=== PATIENT | female | born 1960 | race Caucasian/White ===

== ENCOUNTER 2024-07-15 11:36 | Outpatient (AMB) | payer OTHER, SELFPAY ==
--- NOTE | 2024-07-15 12:10 | A.OFFPC_ITS ---
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 ?? Prior PCP:? No recent PCP Previously Dr Heredia Last office visit/CPE:? > 1 yr Acute issue(s): Some bloating? ?? PMHx:? None SurgHx:? Breast Implants, foot surgery, Umbilical surgery FHx:?Mom: Stomach CA. Sister: Colon CA. Dad: Dementia in advanced age. SocHx:? 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 No Drugs PFSH Family History (Updated 07/15/24 @ 12:20 by Danika Vargas CMA) Mother High blood pressure Thyroid disorder Stomach cancer Sister Thyroid disorder Colon cancer Other FH: mental illness Social History (Updated 07/15/24 @ 12:22 by Danika Vargas CMA) Use of substances other than those prescribed or required for medical reasons: No Questionnaire PHQ-9 Over the last 2 weeks, how often have you been bothered by any of the following problems? 1. Little interest or pleasure in doing things: not at all 2. Feeling down, depressed, or hopeless: not at all 3. Trouble falling or staying asleep, or sleeping too much: not at all 4. Feeling tired or having little energy: not at all 5. Poor appetite or overeating: not at all 6. Feeling bad about yourself - or that you are a failure or have let yourself or your family down: not at all 7. Trouble concentrating on things, such as reading the newspaper or watching television: not at all 8. Moving or speaking so slowly that other people could have noticed. Or the opposite - being so fidgety or restless that you have been moving around a lot more than usual: not at all 9. Thoughts that you would be better off or of hurting yourself in some way: not at all Total score: 0 Depression Screening Interpretation: Negative Depression Screening Done: Yes 47135 - PHQ-9 Billing: Yes Source: Developed by Drs. Nirav Pinto, Loida Galvez, Aden Quinones and colleagues, with an educational vianney from [employer]. Thrive Questionnaire Date Thrive assessed: 07/15/24 I am a: Patient What is your living situation today?: I have a steady place to live Within the past 12 months, did the food you bought not last and you didn't have the money to get more?: Never true Within the past 12 months, did you worry whether your food would run out before you got money to buy more?: Never true Do you have trouble paying for medicines?: No Do you have trouble getting transportation to medical appointments?: No Do you have trouble paying your heating and electricity bill?: No Do you have trouble taking care of your child, family member or friend?: No Do you have trouble with day-to-day activities such as bathing, preparing meals, shopping, managing finances, etc.?: No Are you currently unemployed and looking for a job?: No Are you interested in more education?: No Please select the resources that you would like help with: None Currently or been in a relationship where the following occur: No concerns reported THRIVE Score: 0 AUDIT C Alcohol Use Questionnaire (AUDIT-C) 1. How often do you have a drink containing alcohol?: Never 3. How often do you have six or more drinks on one occasion?: Never Total Score: 0 Score Reviewed/Action Taken: Yes SOFIA-7 AMB Questionnaire SOFIA-7 Date SOFIA - 7 assessed: 07/15/24 Feeling nervous, anxious, or on edge: 0 = Not at all Not being able to stop or control worryin = Not at all Worrying too much about different things: 0 = Not at all Trouble relaxin = Not at all Being so restless that it is hard to sit still: 0 = Not at all Becoming easily annoyed or irritable: 0 = Not at all Feeling afraid as if something awful might happen: 0 = Not at all Total SOFIA-7 score (0-4 normal; 5-9 mild; 10-14 moderate; 15-21 severe): 0 Source: Developed by Drs. Nirav Pinto, Loida Galvez, Aden Quinones and colleagues, with an educational vianney from [employer]. SOFIA-7 Assessment Billing SOFIA-7 Assessment Tool: SOFIA-7 Assessment 78644 Physical exam (Primary Care) Vital Signs: Last Vital Signs Temp 97.8 F 07/15/24 12:25 Pulse 66 07/15/24 12:25 Resp 12 07/15/24 12:25 BP 106/60 07/15/24 12:25 Pulse Ox 95 07/15/24 12:25 Oxygen Delivery Method Room Air 07/15/24 12:25 BMI result Body Mass Index 22.7 PHQ-9: PHQ-9 Score PHQ-9: Total score 0 07/15/24 12:43 Depression Screening Interpretation: Negative Thrive Assessment: Date of Thrive Assessment Date Thrive assessed 07/15/24 07/15/24 12:24 Currently or been in a relationship where the following occur: No concerns reported Coding Level of Care Code New Pt Level 3 (72650) New Pt Prev Care >65yr (96011) Diagnoses Adult general medical exam Z00.00 Abdominal bloating R14.0 Impacted cerumen, right ear H61.21 Additional Codes SOFIA-7 Assessment Billing - SOFIA-7 Assessment Tool: SOFIA-7 Assessment 20264 ([id number]) PHQ-9 - 10728 - PHQ-9 Billing: Yes ([id number]) Assessment & Plan Assessment & Plan (1) Adult general medical exam: Code(s): Z00.00 - Encounter for general adult medical examination without abnormal findings Category: Medical Plan: 64-year-old?female?presents?as?new?patient?for?physical?exam Exam?is?within?normal?limits Encouraged?ongoing?healthy?diet?with?active?lifestyle?and?of?exercise (2) Abdominal bloating: Code(s): R14.0 - Abdominal distension (gaseous) Category: Medical Plan: Mild,?recurrent?abdominal?bloating May?be?due?to?increases?in?food?intake?as?she?working?on?weight?gain?for?body?bu ilding?complications Encouraged?good?hydration She?uses?some?Metamucil?and?she?can?continue?this?or?try?FiberCon She?can?also?consider?simethicone?OTC She?will?let?me?know?if?she?is?still?difficulty (3) Impacted cerumen, right ear: Code(s): H61.21 - Impacted cerumen, right ear Category: Medical Plan: Mild?right?ear?cerumen?impaction Improved?after?removal with currette She?can?also?try?Debrox?drops?as?well?as?baby?oil Orders: Orders Microalbumin, Random (w Creat) Today I10 - Essential (primary) hypertension TSH reflex Free T4 Today Z00.00 - Encounter for general adult medical examination without abnormal findings UA and rflx microscopic Today Z00.00 - Encounter for general adult medical examination without abnormal findings Vitamin D 25-OH Total Today E55.9 - Vitamin D deficiency, unspecified Vitamin B12 and Folate Today E53.8 - Deficiency of other specified B group vitamins Comprehensive Stringer. Panel Fast Today Z00.00 - Encounter for general adult medical examination without abnormal findings Complete Blood Count Auto Diff Today Z00.00 - Encounter for general adult medical examination without abnormal findings Lipid Panel Today Z00.00 - Encounter for general adult medical examination without abnormal findings
[2024-07-15 12:25] VITALS: BP 106/60; PULSE 66; RESP 12; TEMP 36.6; O2SAT 95; BMI 22.7
--- OUTSIDE RECORDS SUMMARY | 2024-07-15 12:47 | XMS_ITS | Patient Health Record ---
Author Organization [facility] Address [address] [place] [address] Care Team Providers Care Clinical Case Manager Name Role Phone Leonardo Heredia Primary Care Provider Unavailabl e Allergies Allergen (clinical drug ingredient) Drug/Non Drug Allergy documented on EMR Reaction Allergy Type Onset Date Status codeine Codeine Unknown Drug Allergy Active Reason For Referral No Information Medications Medication SIG (Take, Route, Fr equency, Duration) Notes Start Date End Date Status Diclofenac Sodium - - as directed Research Director ally Twice a day for 30 day(s) 1% gel 11/09/2020 Active Multivitamin daily Active Venlafaxine HCl 75 MG 1 tablet with food Orally Once a day Active Plan Of Treatment Pending Test Test Name Order Date X ray : Foot, left 3v 11/09/2020 Insurance Providers Payer Name Payer Address Payer Phone Subscriber Number Group Number Insured Name Patient Relationship to Insured Coverage Start Date Coverage End Date [facility] and [facility] [address] [place] [address] [phone] [id number] Elissa Tello Self - patient is the insured Medical (General) History Medical History History ICD Code depression Surgical History Surgery Date(Month/Year) Breast implant colonoscopy
--- OUTSIDE RECORDS SUMMARY | 2024-07-15 12:47 | XMS_ITS | Clinical Summary ---
Author Organization [facility] it Address [address] [place] [address] Care Team Providers Care Director Environmental Name Role Phone Aidee Heredia Primary Care Provider [phone] Surgical History Surgery Date Site/Laterality Comments BREAST SURGERY 2017 PROCEDURE: [place] UNLISTED PROCEDURE BREAST; COMMENT: breast augmentation Family History Medical History Relation Name Comments Parkinson's Disease Father Stomach cancer Mother Relation Name Status Comments Father Alive Mother Social History Tobacco Use Types Packs/Day Years Used Date Smoking Tobacco: Never Smokeless Tobacco: Never Alcohol Use Standard Drinks/Week Comments No 0 (1 standard drink = 0.6 oz pur e alcohol) Comments Unknown Sex and Gender Information Value Date Recorded Sex Assigned at Not on file Legal Sex Female 2:46 PM EST Gender Identity Not on file Sexual Orientation Not on file Obstetrics History Plan of Treatment Health Maintenance Due Date Last Done Comments Breast Cancer Screening 1958 DTaP,Tdap,and Td Vaccines (1 - Tdap) 1977 Pneumococcal Vaccine: 50+ Ye ars (1 of 1 - PCV) 2008 Zoster Vaccines (1 of 2) 2008 COVID-19 Vaccine ( - 2023-2 5 season) 2024 Influenza Vaccine (#1) 2024 RSV Immunization Patients 60 + Years Old (1 - 1-dose 75+ series) 2033 HIB Vaccines Aged Out No longer eligi ble based on patient's age to complete this topic HPV Vaccines Aged Out No longer eligi ble based on patient's age to complete this topic Hepatitis A Vaccines Aged Out No long er eligible based on patient's age to complete this topic Hepatitis B Vaccines Aged Out No long er eligible based on patient's age to complete this topic IPV Vaccines Aged Out No longer eligi ble based on patient's age to complete this topic MMR Vaccines Aged Out No longer eligi ble based on patient's age to complete this topic Meningococcal ACWY Vaccine Aged Out N o longer eligible based on patient's age to complete this topic Meningococcal B Vacine Aged Out No lo nger eligible based on patient's age to complete this topic RSV Immunization Patients Un mehdi 20 months Aged Out No longer eligible b ased on patient's age to complete this topic Varicella Vaccines Aged Out No longer eligible based on patient's age to complete this topic Care Teams Director Environmental Relationship Specialty Start Date End Date Aidee Heredia PA [address] [place] [address] PCP - General Internal Medicine 07/14/19
== END 2024-07-15 13:16 | disposition home or self-care (01) ==
PROVIDERS: PCP Family Medicine; Visit Provider Family Medicine
DX: Z00.00 Encounter for general adult medical examination without abnormal findings (principal); R14.0 Abdominal distension (gaseous); H61.21 Impacted cerumen, right ear

== ENCOUNTER → 2024-07-15 11:36 | Outpatient (BNVA) | payer OTHER, SELFPAY | PROVIDERS: PCP Family Medicine; Visit Provider Family Medicine | DX: Z00.01 Encounter for general adult medical examination with abnormal findings (principal); R14.0 Abdominal distension (gaseous); H61.21 Impacted cerumen, right ear | CPT/HCPCS: 69210; 96127 ==

== ENCOUNTER 2024-07-22 07:44 | Outpatient (REF) | payer OTHER, SELFPAY ==
--- OUTSIDE RECORDS SUMMARY | 2024-07-22 07:47 | XMS_ITS | Clinical Summary ---
Author Organization [facility] it Address [address] [place] [address] Care Team Providers Care Senior Linux Administrator Name Role Phone Aidee Heredia Primary Care Provider [phone] Surgical History Surgery Date Site/Laterality Comments BREAST SURGERY 2017 PROCEDURE: CT UNLISTED PROCEDURE BREAST; COMMENT: breast augmentation Family [...] age to complete this topic Care Teams Senior Linux Administrator Relationship Specialty Start Date End Date Aidee Heredia PA [address] [place] [address] PCP - General Internal Medicine 07/14/19
[2024-07-22 11:30] LABS: MANUAL DIFF FLAG NO
[2024-07-22 11:34] LABS: Basophils Percent Auto 0.9 % (0-2); Eosinophils Absolute Auto 0.1 X10*3/uL (0.0-0.4); Hematocrit 47.7 % (37.0-47.0); Hemoglobin 15.7 g/dl (12.0-16.0); Imm Gran Abs Auto 0.01 X10*3/uL (0.00-0.03); Imm Gran Pct Auto 0.3 % (0.0-0.4); Lymphocytes Absolute Auto 0.8 X10*3/uL (1.2-4.9); Lymphocytes Percent Auto 22.9 % (20-40); Mean Corpuscular HGB Conc 32.9 g/dl (31.0-35.0); Mean Corpuscular Hemoglobin 31.9 pg (27.0-33.0); Mean Platelet Volume 10.8 fL (9.4-12.3); Monocytes Absolute Auto 0.5 X10*3/uL (0.1-1.2); Monocytes Percent Auto 14.5 % (2-11); Neutrophils Absolute Auto 2.1 x10*3/uL (2.0-8.3); Neutrophils Percent Auto 59.4 % (45-73); Platelet Count 177 X10*3/uL (160-400); Red Blood Count 4.92 X10*6/uL (4.20-5.50); Red Cell Distribution Width 12.1 % (11.0-16.0); White Blood Count 3.5 X10*3/uL (4.8-10.8)
[2024-07-22 11:50] LABS: Appearance Urine Clear; Color Urine Yellow; Glucose Urine UA Negative (Negative); Leukocyte Esterase Urine Negative (Negative); Nitrite Urine Negative (Negative); PH 7.5 (5.0-9.0); Specific Gravity - Urine <= 1.005 (1.005-1.025); Urine Blood Negative (Negative); Urine Ketones Negative (Negative); Urine Protein Negative (Neg-Trace)
[2024-07-22 12:25] LABS: Creatinine Urine 10.65 mg/dL; Microalbumin Urine < 5.0 mg/L
[2024-07-22 12:26] LABS: Alanine Aminotransferase 71 U/L (0-31); Albumin Level 4.6 g/dL (3.5-5.0); Alkaline Phosphatase 157 U/L (39-117); Anion Gap 11 (12-20); Aspartate Amino Transferase 39 U/L (5-31); Bilirubin Total 0.5 mg/dL (0.0-1.0); Blood Urea Nitrogen 22 mg/dL (9-16); Carbon Dioxide 29 mmol/L (22-29); Chloride 106 mmol/L (96-108); Cholesterol 155 mg/dL (<200); Estimated Glomerular Filt Rate > 60; Glucose Fasting 78 mg/dL (60-99); HDL Cholesterol 68 mg/dL (>40); LDL Cholesterol Calculated 77 mg/dL (<100); Potassium 3.9 mmol/L (3.3-5.1); Sodium 142 mmol/L (135-145); Total Protein 7.4 g/dL (6.5-8.0); Triglycerides 53 mg/dL (<150)
[2024-07-22 12:40] LABS: Folate 13.6 ng/mL (> or = 4.0); Vitamin B12 894 pg/mL (200-900)
[2024-07-22 12:42] LABS: TSH reflex Free T4 2.36 uIU/mL (0.32-4.0); Vitamin D 25-OH Total 67.4 ng/mL (>30)
== END 2024-07-22 07:45 | disposition home or self-care (01) ==
LOC: HO.WFDLDS 07:44
PROVIDERS: Visit Provider Family Medicine
DX: Z00.00 Encounter for general adult medical examination without abnormal findings (principal); E55.9 Vitamin D deficiency, unspecified; E53.8 Deficiency of other specified B group vitamins; I10 Essential (primary) hypertension
CPT/HCPCS: 36415; 80053; 80061; 81003; 82043; 82306; 82570; 82607; 82746; 84443; 85025

== ENCOUNTER 2024-08-13 11:57 | Outpatient (AMB) | payer OTHER, SELFPAY ==
--- NOTE | 2024-08-13 11:56 | A.OFFPC_ITS ---
Intake Visit Reasons: f/u CPE-labs via telemedicine Clinical Education Specialist Required: No Allergies No Known Allergies Allergy (Verified 08/13/24 11:56) Medication List - Last Reconciled 08/13/24 by Carlos Marin MD No Known Home Meds HPI f/u CPE-labs via telemedicine HPI Details 64 y/o female presents to f/u labs via t elemedicine. Labs drawn 07/22/24. Reviewed labs with pt. Hct mildly elevated. Elevated liver enzymes - AST 39, ALT 71. Denies EtOH use. Triglycerides 53. TC 155. LDL 77, HDL 68. Has not had a bone density test before. Has not had a pap smear done in awhile. PFS Family History (Updated 07/15/24 @ 12:20 by Danika Vargas [facility]) Mother High blood pressure Thyroid disorder Stomach cancer Sister Thyroid disorder Colon cancer Other FH: mental illness Questionnaire Thrive Questionnaire Date Thrive assessed: 07/15/24 SOFIA-7 AMB Questionnaire SOFIA-7 Date SOFIA - 7 assessed: 07/15/24 Source: Developed by Drs. Nirav Pinto, Loida Galvez, Aden Quinones and colleagues, with an educational vianney from [employer]. Review of Systems Const Denies chills, Denies fatigue, Denies fever(s), Denies headache(s) and Denies weakness ENT Denies dizziness and Denies headache(s) Card Denies dyspnea Resp Denies cough, Denies dyspnea, Denies wheezing and Denies other (shortness of breath) Musc Denies numbness and Denies tingling Neuro Denies dizziness, Denies headache(s), Denies numbness, Denies tingling and Denies weakness Psych Denies anxiety and Denies depression Endo Denies fatigue Aller/Immun Denies wheezing Physical exam (Primary Care) Thrive Assessment: Date of Thrive Assessment Date Thrive assessed 07/15/24 08/13/24 11:57 Telehealth Telehealth Telehealth Platform: Telephone Location of provider rendering services: practice address Location of patient: address on file Patient Identification confirmed using: Name, : Yes Telehealth method: voice only Patient verbally consented to treatment: Yes Patient verbally consented to billing insurance company: Yes Patient informed of any privacy concerns related to visit: Yes Minutes spent on Phone/Video with Pt.: 11 Coding Level of Care Code Tele Est Pt Level 2 (26192) Diagnoses Elevated hematocrit R71.8 Elevated liver enzymes R74.8 Screening for colon cancer Z12.11 Breast cancer screening by mammogram Z12.31 Screening for osteoporosis Z13.820 Screening for cervical cancer Z12.4 Assessment & Plan Assessment & Plan (1) Elevated hematocrit: Code(s): R71.8 - Other abnormality of red blood cells Category: Medical Plan: Mildly?elevated?hematocrit?and?slightly?low?WBC Platelet?count?is?within?range Will?recheck?CBC (2) Elevated liver enzymes: Code(s): R74.8 - Abnormal levels of other serum enzymes Category: Medical Plan: Elevated?liver?enzymes. Patient?is?not?overweight,?does?not?drink?alcohol?hydrates?well Unclear?cause Will?recheck?this Also?has?a?history?abdominal?bloating?and?discomfort. If?liver?enzymes?are?still?elevated,?will?check?ultrasound (3) Screening for colon cancer: Code(s): Z12.11 - Encounter for screening for malignant neoplasm of colon Category: Medical Plan: Patient?says?she?is?not?sure?when?her?last?colonoscopy?was?but[facility] Will?request?report?we?can?discuss?next?visit (4) Breast cancer screening by mammogram: Code(s): Z12.31 - Encounter for screening mammogram for malignant neoplasm of breast Category: Medical Plan: Overdue?for?mammogram Of?note?she?does?have?breast?augmentation Mammogram?ordered (5) Screening for osteoporosis: Code(s): Z13.820 - Encounter for screening for osteoporosis Category: Medical Plan: Due?for?bone?density?testing Ordered (6) Screening for cervical cancer: Code(s): Z12.4 - Encounter for screening for malignant neoplasm of cervix Category: Medical Plan: Patient?says?she?was?told?by?her?prior?supervisor production?that?she?does?not?need?Pap? smears?any?longer She?is?in?a?longstanding Monogamous?relationship?no?further?Pap?smears?needed?at?this Orders: Orders 2 XR DEXA axial skeleton Today M81.0 - Age-related osteoporosis without current pathological fracture Comprehensive [place]. Panel Fast Today R74.8 - Abnormal levels of other serum enzymes, Z00.00 - Encounter for general adult medical examination without abnormal findings Lutenizing Hormone Today R14.0 - Abdominal distension (gaseous) Follicle Stimulating Hormone Today R14.0 - Abdominal distension (gaseous) MM tomosynthesis screening BI Today Z12.31 - Encounter for screening mammogram for malignant neoplasm of breast Complete Blood Count Auto Diff Today R71.8 - Other abnormality of red blood cells, Z00.00 - Encounter for general adult medical examination without abnormal findings IRON PROFILE Today R71.8 - Other abnormality of red blood cells
== END 2024-08-13 17:05 | disposition home or self-care (01) ==
LOC: HO.HMCFM 11:57
PROVIDERS: PCP Family Medicine; Visit Provider Family Medicine
DX: R71.8 Other abnormality of red blood cells (principal); R74.8 Abnormal levels of other serum enzymes; Z12.11 Encounter for screening for malignant neoplasm of colon; Z12.31 Encounter for screening mammogram for malignant neoplasm of breast; Z13.820 Encounter for screening for osteoporosis

== ENCOUNTER → 2024-08-13 11:57 | Outpatient (BNVA) | payer OTHER, SELFPAY | PROVIDERS: PCP Family Medicine; Visit Provider Family Medicine ==